=== PATIENT | male | born 1970 | race Caucasian/White ===

== ENCOUNTER 2018-11-14 17:41 | Emergency (ER) | payer BC, OTHER ==
[2018-11-14 18:02] VITALS: BP 133/66
[2018-11-14 18:22] LABS: Influenza A Molecular NEGATIVE (Negative); Influenza B Molecular NEGATIVE (Negative)
--- NOTE | 2018-11-14 19:31 | UC ---
UC General HPI - HPI Summary HPI Summary: PT C/O A 2 DAY HX OF HEADACHE, BODYACHES, SUBJECTIVE FEVER AND COUGH. STATES " THIS IS GOING AROUND AT WORK" NO V/D/SOB. + JOINT PAINS. NO RASH OR HX TICK BITES. - History of Current Complaint Chief Complaint: UCGeneralIllness Stated Complaint: BODY ACHES,HEADACHE,COUGH Time Seen by Provider: 11/14/18 19:27 Hx Obtained From: Patient Timing: Constant Pain Intensity: 8 - Allergy/Home Medications Allergies/Adverse Reactions: Allergies Allergy/AdvReac Type Severity Reaction Status Date / Time No Known Allergies Allergy Verified 11/14/18 17:58 PMH/Surg Hx/FS Hx/Imm Hx Psychological History: Depression - Surgical History Surgical History: Yes Surgery Procedure, Year, and Place: arthroscopy left knee 1987 - Family History Known Family History: Positive: Non-Contributory - Social History Occupation: Employed Full-time Alcohol Use: Daily Alcohol Amount: 1 drink Substance Use Type: None Smoking Status (MU): Never Smoked Tobacco Household Exposure Type: Cigarettes - Immunization History Vaccination Up to Date: Yes Review of Systems All Other Systems Reviewed And Are Negative: Yes Constitutional: Positive: Fever, Chills Skin: Positive: Negative Eyes: Positive: Negative ENT: Positive: Negative Respiratory: Positive: Cough. Negative: Shortness Of Breath Cardiovascular: Positive: Negative Gastrointestinal: Positive: Negative Genitourinary: Positive: Negative Motor: Positive: Negative Neurovascular: Positive: Negative Musculoskeletal: Positive: Arthralgia, Myalgia Neurological: Positive: Headache Psychological: Positive: Negative Is Patient Immunocompromised?: No Physical Exam Triage Information Reviewed: Yes Appearance: Well-Appearing Vital Signs: Initial Vital Signs Temp 98.9 F 11/14/18 17:57 Pulse 98 11/14/18 17:57 Resp 19 11/14/18 17:57 BP 133/66 11/14/18 17:57 Pulse Ox 98 11/14/18 17:57 Vital Signs Reviewed: Yes Eyes: Positive: Conjunctiva Clear ENT: Positive: Pharynx normal, TMs normal. Negative: Nasal drainage Neck: Positive: Supple, Nontender, No Lymphadenopathy Respiratory: Positive: Lungs clear, Normal breath sounds, No respiratory distress Cardiovascular: Positive: RRR, No Murmur Abdomen Description: Positive: Nontender, No Organomegaly, Soft Bowel Sounds: Positive: Present Musculoskeletal: Positive: ROM Intact, No Edema Neurological: Positive: Alert Psychological: Positive: Age Appropriate Behavior Skin Exam: Normal Skin: Negative: Rashes Diagnostics - Laboratory Diagnostic Studies Completed/Ordered: RAPID FLU=NEGATIVE Course/Dx - Differential Dx - Multi-Symptom Differential Diagnoses: Other - NOTHING TO SUGGEST BACTERIAL INFECTION. NO HX TICK BITE TO SUGGEST LYME AND S/S'S C/W LOCAL INFLUENZA. - Diagnoses Provider Diagnosis: Influenza-like illness Discharge - Sign-Out/Discharge Documenting (check all that apply): Patient Departure All imaging exams completed and their final reports reviewed: No Studies - Discharge Plan Condition: Stable Disposition: HOME Patient Education Materials: Influenza (DC) Forms: *Work Release Referrals: Kevin Carrillo MD [Primary Care Provider] - 5 Days - Billing Disposition and Condition Condition: STABLE Disposition: Home
== END 2018-11-14 19:36 | disposition home or self-care (01) ==
LOC: UCCORT 17:41
DX: J11.1 Influenza due to unidentified influenza virus with other respiratory manifestations (principal)
CPT/HCPCS: 99201; G0463

== ENCOUNTER 2019-12-12 09:24 | Emergency (ER) | payer BC ==
--- OUTSIDE RECORDS SUMMARY | 2019-12-12 09:30 | XMS REPORT | Continuity of Care Document ---
:1970 External Reference #:[id number] Author Name IKER Beltran (transmitted by agent of provider Yoselin Rolle) Address [address] [place] [address] Care Team Providers Name Role Phone Mark Gipson M.D. - Urology Care Team Information Tool Engine Lathe Set Up Operator [phone] [facility] - Sports Care Team Information Tool Engine Lathe Set Up Operator [phone] [facility] Claiborne III, Carter Barahona MD - Care Team Information Tool Engine Lathe Set Up Operator [facility] - Physical Care Team Information Tool Engine Lathe Set Up Operator Therapist Patricia Cross PA - Physician Glycerin Operator Care Team Information Tool Engine Lathe Set Up Operator [phone] Problems Active Problems Provider Date Disorder of back Onset: 10/29/2012 Note: 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 Dizziness and giddiness IKER Beltran Onset: 12/05/2018 Backache IKER Beltran Onset: 02/28/2019 Vertigo IKER Beltran Onset: 02/28/2019 Sacroiliac joint pain IKER Beltran Onset: 08/04/2019 Social History Type Date Description Comments Sex Unknown ETOH Use Occasionally consumes alcohol Tobacco Use Start: Unknown End: Patient is a former smoker Unknown Recreational Drug Use Never Used Drugs Smoking Status Reviewed: 12/05/19 Patient is a former smoker Exercise Type/Frequency Exercises sporadically Allergies, Adverse Reactions, Alerts Description No Known Drug Allergies Medications Active Medications SIG Qnty Indications Ordering Provider Date Trazodone HCL take 1 tablet by 90tabs G47.00 Kevin 12/05/2019 50mg mouth every night MD Lorena Tablets at bedtime Bupropion HCL ER (XL) Take 1 Tablet By 90tabs Kevin 08/13/2018 Mouth Every Day MD Lorena 150mg Tablets ER 24HR Bupropion HCL ER (XL) take 1 tablet by 90tabs Kevin 08/31/2015 mouth daily MD Lorena 300mg Tablets ER 24HR Diclofenac Sodium GracezaSabina, 75mg FIELD ASSESSOR-BC Tablets DR History Medications Trazodone HCL take 1 tablet 90tabs G47.00 Kevin Carrillo, 12/05/2019 - by mouth every MD 12/05/2019 50mg Tablets night at bedtime Immunizations CPT Code Status Date Vaccine Lot # [id number] Given 05/18/2015 Tdap - Tetanus/Diptheria/Acellular Pertussis [id number] Refused 08/19/2016 Influenza Virus Vaccine, Quadrivalent, Split, Im Use 6-35mo Vital Signs Date Vital Result Comment 12/05/2019 8:05am Weight 271.44 lb BP Systolic Sitting 122 mmHg BP Diastolic Sitting 60 mmHg 08/28/2019 8:17am Weight 274.56 lb BP Systolic Sitting 122 mmHg BP Diastolic Sitting 50 mmHg Results Description No Information Available Procedures Date Code Description Status 10/25/2017 [id number] Diabetic Retinal Eye Exam Completed Medical Devices Description No Information Available Encounters Type Date Location Provider Dx Diagnosis Office Visit 08/28/2019 [facility] IKER Beltran F41.9 Anxiety disorder, 8:15a unspecified F43.23 Adjustment disorder with mixed anxiety and depressed mood M54.5 Low back pain Assessments Date Code Description Provider 12/05/2019 F41.9 Anxiety disorder, unspecified IKER Beltran 12/05/2019 F43.23 Adjustment disorder with mixed anxiety and depressed IKER Beltran mood 12/05/2019 G47.00 Insomnia IKER Beltran 08/28/2019 F41.9 Anxiety disorder, unspecified IKER Beltran 08/28/2019 F43.23 Adjustment disorder with mixed anxiety and depressed IKER Beltran mood 08/28/2019 M54.5 Low back pain IKER Beltran Plan of Treatment Future Appointment(s):03/05/2020 8:00 am - IKER Beltran at [facility] - Patricia Cross, PAF41.9 Anxiety disorder, bupbelknycbP91.23 Adjustment disorder with mixed anxiety and depressed moodG47.00 InsomniaNew Medication: Trazodone HCL 50 mg - take 1 tablet by mouth every night at bedtimeTrazodone HCL 50 mg - take 1 tablet by mouth every night at bedtime Functional Status Functional Condition Comment Date Status Bifocal glasses Active Mental Status Description No Information Available Referrals Description No Information Available
[2019-12-12 09:54] VITALS: BP 119/78
--- NOTE | 2019-12-12 10:49 | UC ---
FLU HPI - HPI Summary HPI Summary: 49yo male presenting with dry cough, nasal congestion, sore throat, nausea, body aches, and chills since yesterday. Patient stateshe had a fever of 101 yesterday. Denies sob and wheezing. Denies vomiting and abd pain. Taking mucinex without much relief. - History of Current Complaint Chief Complaint: UCRespiratory Stated Complaint: FLU SYMPTOMS Hx Obtained From: Patient Pain Intensity: 7 Pain Scale Used: 0-10 Numeric - Allergy/Home Medications Allergies/Adverse Reactions: Allergies Allergy/AdvReac Type Severity Reaction Status Date / Time No Known Allergies Allergy Verified 12/12/19 09:49 Home Medications: Home Medications Bupropion XL* [Wellbutrin XL (NF)] 450 mg PO DAILY 07/29/12 [History Confirmed 12/12/19] Multivitamins/Minerals TAB* [Theragran/minerals TAB*] 1 tab PO DAILY 07/29/12 [ History Confirmed 12/12/19] Phenylephrine/Dm/Acetaminop/GG [Mucinex Fast-Max Cold-Flu Cap] 1 each PO Q4H PRN 12/12/19 [History Confirmed 12/12/19] Testosterone GEL (NF) [Androgel (NF)] 50 mg TOPICAL DAILY 12/12/19 [History Confirmed 12/12/19] traZODone TAB* [Desyrel TAB*] 50 mg PO BEDTIME 12/12/19 [History Confirmed 12/11] PMH/Surg Hx/FS Hx/Imm Hx - Surgical History Surgical History: Yes Surgery Procedure, Year, and Place: Left Knee Arthroscopy, 1987 - Family History Known Family History: Positive: Non-Contributory - Social History Alcohol Use: 1 drink 3-4 times weekly Alcohol Amount: 1 drink Substance Use Type: None Smoking Status (MU): Former Smoker Household Exposure Type: Cigarettes - Immunization History Vaccination Up to Date: Yes Review of Systems All Other Systems Reviewed And Are Negative: Yes Constitutional: Positive: Fever, Chills ENT: Positive: Sore Throat, Sinus Congestion Respiratory: Positive: Cough. Negative: Shortness Of Breath Cardiovascular: Positive: Negative Gastrointestinal: Positive: Nausea. Negative: Abdominal Pain, Vomiting, Diarrhea Musculoskeletal: Positive: Myalgia Neurological/Mental Status: Positive: Headache Physical Exam - Summary Physical Exam Summary: Vital Signs Reviewed: Yes A+Ox3, no distress Eyes: Conjunctiva mildly inflamed b/l ENT: Hearing grossly normal, TM x 2 clear, moist, uvula midline, no exudate, no erythema Neck: Positive: Supple Respiratory: Positive: No respiratory distress, No accessory muscle use + CTA throughout no w/r Cardiovascular: RRR nl s1, s2 no m/r Musculoskeletal Exam: PRADO x 4 without difficulty Neurological: Positive: Alert Psychological: Positive: age appropriate behavior Skin: Positive: no rash, no ecchymosis Vital Signs: Initial Vital Signs Temp 98.7 F 12/12/19 09:47 Pulse 82 12/12/19 09:47 Resp 16 12/12/19 09:47 BP 119/78 12/12/19 09:47 Pulse Ox 99 12/12/19 09:47 Lab Results 12/12/19 Range/Units 10:48 Influenza B (Rapid) Positive H (Negative) Flu Course/Dx - Course Course Of Treatment: Positive flu B. I discussed influenza with patient and educated on symptomatic treatment. Patient declined treatment with tamiflu, stating he "did not do well with it last time he took it." I educated on s/s of worsening respiratory illness and instructed to go to ED with any new or worsening symptoms. Patient voiced understanding and agreed with treatment plan. - Differential Dx/Diagnosis Provider Diagnosis: Influenza B Discharge ED - Sign-Out/Discharge Documenting (check all that apply): Patient Departure All imaging exams completed and their final reports reviewed: No Studies - Discharge Plan Condition: Stable Disposition: HOME Patient Education Materials: Influenza (ED) Forms: *Work Release Referrals: Kevin Carrillo MD [Primary Care Provider] - Additional Instructions: As discussed, you tested positive for influenza B today. You may continue with over the counter cold and flu medication as directed. Get plenty of rest and increase your fluid intake. Follow up with your primary care provider if symptoms do not resolve within improve within 7-10 days. Go to the emergency room if you experience new or worsening symptoms, including difficulty breathing and fever higher than 102 that does not improve with medication. - Billing Disposition and Condition Condition: STABLE Disposition: Home
[2019-12-12 10:52] LABS: Influenza B Molecular POSITIVE (Negative)
== END 2019-12-12 11:10 | disposition home or self-care (01) ==
LOC: UCCORT 09:24
DX: J10.1 Influenza due to other identified influenza virus with other respiratory manifestations (principal); Z87.891 Personal history of nicotine dependence; R51 Headache
CPT/HCPCS: 99212; G0463